=== PATIENT | female | born 1960 | race Hispanic/Latino ===

== ENCOUNTER 2019-06-09 21:47 | Emergency (ER) | payer OTHER ==
[~2019-06-09 21:47] MED LIST: ATOR40TA69 PO; CIPR-279 PO; INSU3INS5 SQ; LOSA25TA41 PO; METF-446 PO; METR500T PO
[2019-06-09] MEDS ORDERED: ONDANSETRON HCL 4 MG/2 ML VIAL ONE (21:51)
[2019-06-09] MEDS ORDERED: SODIUM CHLORIDE 0.9% 250 ML IV ONE (21:52)
[2019-06-09 22:17] LABS: BASOPHILS % (AUTO) 0.3 % (0.0-5.0); EOSINOPHILS % (AUTO) 0.1 % (0.0-8.0); HEMATOCRIT 39.9 % (36-48); MEAN CORPUSCULAR HEMOGLOBIN 29.4 pg (27.0-33.0); MEAN CORPUSCULAR HGB CONC 32.6 g/dL (32.0-36.0); MEAN CORPUSCULAR VOLUME 90.3 fL (79-99); MONOCYTES % (AUTO) 4.2 % (3.0-13.0); NEUTROPHILS % (AUTO) 88.2 % (40.0-77.0); PLATELET COUNT (AUTO) 292 K/uL (130-400); RED BLOOD CELL COUNT(AUTO) 4.42 MIL/uL (4.00-5.50); RED CELL DISTRIBUTION WIDTH 12.9 % (11.0-15.5); WHITE BLOOD COUNT (AUTO) 9.7 K/uL (4.8-10.8)
[2019-06-09] MEDS ORDERED: DiphenhydrAMINE HCL 50 MG/ML VIAL ONE (22:23)
[2019-06-09] MEDS ORDERED: METOCLOPRAMIDE 10 MG/2 ML VIAL ONE (22:23)
[2019-06-09] MEDS ORDERED: FAMOTIDINE/PF 20 MG/2 ML VIAL IV ONE (22:24)
[2019-06-09] MEDS ORDERED: SODIUM CHLORIDE 0.9% 1000ML 1,000 ML IV ONE ×2 (22:24→23:55)
[2019-06-09 22:27] LABS: CREATININE 0.8 mg/dL (0.5-1.5); POTASSIUM 3.4 mmol/L (3.5-5.1)
[2019-06-09 22:31] LABS: ALBUMIN 3.6 g/dL (3.5-5.0); BILIRUBIN,TOTAL 0.3 mg/dL (0.2-1.0); TOTAL PROTEIN, SERUM 8.6 g/dL (6.0-8.3)
[2019-06-09 22:56] LABS: APPEARANCE,URINE Clear (CLEAR); BILIRUBIN,URINE Negative (NEGATIVE); COLOR,URINE Yellow (YELLOW); GLUCOSE, URINE (UA) >=1000 mg/dL (NEGATIVE); KETONES,URINE Negative (NEGATIVE); LEUKOCYTE ESTERASE ,URINE Negative (NEGATIVE); NITRATE,URINE Negative (NEGATIVE); OCCULT BLOOD,URINE Negative (NEGATIVE); PROTEIN,URINE POS 2+ mg/dL (NEGATIVE)
[2019-06-09 23:09] LABS: AMORPHOUS SEDIMENT,UR Few /LPF (None Seen); BACTERIA,URINE None Seen /HPF (None Seen); RBC,URINE None Seen /HPF (0-1); SQUAMOUS EPITHELIAL CELL,UR Rare /HPF (0-2); WBC,URINE None Seen /HPF (0-1); YEAST,URINE BUDDING None Seen /HPF (None Seen)
[2019-06-09 23:35] LABS: OCCULT BLOOD STOOL SINGLE ONLY NEGATIVE (NEGATIVE)
== END 2019-06-10 01:13 | disposition home or self-care (01) ==
LOC: EDH 21:47
DX: K29.70 Gastritis, unspecified, without bleeding (principal); E86.9 Volume depletion, unspecified; R19.7 Diarrhea, unspecified; I10 Essential (primary) hypertension; E11.9 Type 2 diabetes mellitus without complications; E78.5 Hyperlipidemia, unspecified
CPT/HCPCS: 36415; 80053; 81001; 82270; 83630; 83690; 84484; 85025; 87046; 87177; 87324; 93005; 96361; 96374; 96375; 99285; J1200; J2405; J2765; J3490; J7030 ×3

== ENCOUNTER 2021-06-24 21:40 | Emergency (ER) | payer SELFPAY ==
[~2021-06-24] VITALS: Ht 152.4 cm; Wt 72.6 kg
[2021-06-24 22:13] LABS: BASOPHILS % (AUTO) 0.6 % (0.0-5.0); EOSINOPHILS % (AUTO) 2.5 % (0.0-8.0); HEMATOCRIT 38.2 % (36-48); LYMPHOCYTES % (AUTO) 42.1 % (21.0-51.0); MEAN CORPUSCULAR HEMOGLOBIN 29.6 pg (27.0-33.0); MEAN CORPUSCULAR HGB CONC 32.7 g/dL (32.0-36.0); MEAN CORPUSCULAR VOLUME 90.3 fL (79-99); MONOCYTES % (AUTO) 8.9 % (3.0-13.0); NEUTROPHILS % (AUTO) 45.6 % (40.0-77.0); PLATELET COUNT (AUTO) 279 K/uL (130-400); RED BLOOD CELL COUNT(AUTO) 4.23 MIL/uL (4.00-5.50); RED CELL DISTRIBUTION WIDTH 12.5 % (11.0-15.5); WHITE BLOOD COUNT (AUTO) 7.1 K/uL (4.8-10.8)
[2021-06-24 22:25] LABS: INR 1.02 (0.85-1.15); PROTHROMBIN TIME 11.1 SEC (9.6-11.6)
[2021-06-24 22:26] LABS: PARTIAL THROMBOPLASTIN TIME 25.3 SEC (26.3-35.5)
[2021-06-24 22:30] LABS: ALBUMIN 3.5 g/dL (3.5-5.0); BILIRUBIN,TOTAL 0.3 mg/dL (0.2-1.0); POTASSIUM 3.4 mmol/L (3.5-5.1); TOTAL PROTEIN, SERUM 8.3 g/dL (6.0-8.3)
[2021-06-24 23:46] LABS: APPEARANCE,URINE Clear (CLEAR); BILIRUBIN,URINE Negative (NEGATIVE); COLOR,URINE Yellow (YELLOW); GLUCOSE, URINE (UA) >=1000 mg/dL (NEGATIVE); KETONES,URINE Negative (NEGATIVE); LEUKOCYTE ESTERASE ,URINE Small (NEGATIVE); NITRATE,URINE Negative (NEGATIVE); OCCULT BLOOD,URINE Negative (NEGATIVE); PH,URINE 5.5 (5.0-8.0); PROTEIN,URINE Negative (NEGATIVE); UROBILINOGEN,URINE 0.2 mg/dL (0.2-1.0)
[2021-06-24 23:58] LABS: BACTERIA,URINE Rare /HPF (None Seen); RBC,URINE 0-1 /HPF (0-1); SQUAMOUS EPITHELIAL CELL,UR Few /HPF (0-2)
[2021-06-24 23:59] LABS: YEAST,URINE BUDDING Rare /HPF (None Seen)
[2021-06-25] MEDS ORDERED: 0.9%NACL 1000ML 1,000 ML IV ONE ×2 (01:00)
[2021-06-25] MEDS ORDERED: KETOROLAC 30MG VIAL (30MG/ML) IV ONE (01:00)
[2021-06-25] MEDS ORDERED: CEFTRIAXONE 1G VIAL IVP ONE (01:00)
[2021-06-25] MEDS ORDERED: KETOROLAC 15MG/ML VIAL (15MG/ML) ONE (02:54)
[2021-06-25] MEDS ORDERED: CEFTRIAXONE 1G VIAL ONE (02:54)
[2021-06-25] MEDS ORDERED: KETOROLAC 30MG VIAL (30MG/ML) ONE (02:57)
[2021-06-25] MEDS ORDERED: CEPH500T PO (03:14)
[2021-06-25] MEDS ORDERED: MELO7.5T12 PO (03:15)
[2021-06-25] MEDS ORDERED: DICY20TA2 PO (03:15)
[2021-06-25] MEDS ORDERED: CYCL-309 PO (03:15)
[2021-06-25 03:20] VITALS: BP 123/60
== END 2021-06-25 03:24 | disposition home or self-care (01) ==
LOC: EDH 21:40
DX: N39.0 Urinary tract infection, site not specified (principal); E86.9 Volume depletion, unspecified; R53.81 Other malaise; R53.83 Other fatigue; Z20.822 Contact with and (suspected) exposure to COVID-19; E11.65 Type 2 diabetes mellitus with hyperglycemia; I10 Essential (primary) hypertension; Z79.1 Long term (current) use of non-steroidal anti-inflammatories (NSAID); Z79.4 Long term (current) use of insulin; Z79.899 Other long term (current) drug therapy
CPT/HCPCS: 36415 ×2; 71045; 80053; 81001; 82948; 83605; 84484; 85025; 85610; 85730; 87040 ×2; 87088; 87635; 87804 ×2; 93005; 96361; 96374; 96375; 99285; C9803; J0696; J1885; J7030

== ENCOUNTER 2022-01-27 23:29 | Emergency (ER) | payer OTHER ==
[~2022-01-27] VITALS: Ht 154.9 cm; Wt 68.5 kg
[~2022-01-27 23:29] MED LIST changes: +CEPH500T PO; +CYCL-309 PO; +DICY20TA2 PO; +MELO7.5T12 PO
[2022-01-28 00:09] LABS: BASOPHILS % (AUTO) 0.6 % (0.0-5.0); EOSINOPHILS % (AUTO) 1.2 % (0.0-8.0); LYMPHOCYTES % (AUTO) 50.6 % (21.0-51.0); MEAN CORPUSCULAR HEMOGLOBIN 30.4 pg (27.0-33.0); MEAN CORPUSCULAR HGB CONC 33.8 g/dL (32.0-36.0); MEAN CORPUSCULAR VOLUME 89.9 fL (79-99); MONOCYTES % (AUTO) 8.5 % (3.0-13.0); PLATELET COUNT (AUTO) 260 K/uL (130-400); RED BLOOD CELL COUNT(AUTO) 3.78 MIL/uL (4.00-5.50); RED CELL DISTRIBUTION WIDTH 12.4 % (11.0-15.5); WHITE BLOOD COUNT (AUTO) 7.8 K/uL (4.8-10.8)
[2022-01-28 00:15] LABS: APPEARANCE,URINE CLEAR (CLEAR); BILIRUBIN,URINE NEGATIVE (NEGATIVE); COLOR,URINE LIGHT-YELLOW (YELLOW); GLUCOSE, URINE (UA) >=1000 mg/dL (NEGATIVE); KETONES,URINE NEGATIVE (NEGATIVE); LEUKOCYTE ESTERASE ,URINE NEGATIVE Leu/uL (NEGATIVE); NITRATE,URINE NEGATIVE (NEGATIVE); OCCULT BLOOD,URINE NEGATIVE (NEGATIVE); PH,URINE 5.5 (5.0-8.0); PROTEIN,URINE NEGATIVE (NEGATIVE); UROBILINOGEN,URINE 0.2 mg/dL (0.2-1.0)
[2022-01-28 00:18] LABS: SQUAMOUS EPITHELIAL CELL,UR RARE /HPF (0-2); WBC,URINE 0-1 /HPF (0-1)
[2022-01-28 00:27] LABS: CREATININE 0.9 mg/dL (0.5-1.5); POTASSIUM 4.3 mmol/L (3.5-5.1)
[2022-01-28 00:37] LABS: ALBUMIN 3.2 g/dL (3.5-5.0); TOTAL PROTEIN, SERUM 7.6 g/dL (6.0-8.3)
[2022-01-28] MEDS ORDERED: 0.9%NACL 1000ML 1,000 ML IV ONE ×2 (00:42→01:00)
[2022-01-28 04:49] VITALS: BP 142/62
[2022-01-28] MEDS ORDERED: MAG/ALUM/SIMETH 30 ML UDCUP ONE (04:49)
[2022-01-28] MEDS ORDERED: MAG/ALUM/SIMETH 30 ML UDCUP PO ONE (05:00)
[2022-01-28] MEDS ORDERED: TERC45CR VG (05:13)
== END 2022-01-28 05:38 | disposition home or self-care (01) ==
LOC: EDH 23:29
DX: N76.0 Acute vaginitis (principal); E11.65 Type 2 diabetes mellitus with hyperglycemia; R10.10 Upper abdominal pain, unspecified; I10 Essential (primary) hypertension; Z98.890 Other specified postprocedural states; Z79.899 Other long term (current) drug therapy; Z79.84 Long term (current) use of oral hypoglycemic drugs; Z79.4 Long term (current) use of insulin
CPT/HCPCS: 99285; 80053; 83690; 85025; 81001; 36415; 74176; 96360; 96361; 93005; J7030

== ENCOUNTER 2023-01-23 00:14 | Emergency (ER) | payer OTHER ==
[~2023-01-23] VITALS: Ht 154.9 cm; Wt 81.6 kg
[~2023-01-23 00:14] MED LIST changes: +TERC45CR VG
[2023-01-23 01:23] LABS: BASOPHILS # (AUTO) 0.04 K/uL (0.00-0.20); BASOPHILS % (AUTO) 0.5 % (0.0-5.0); EOSINOPHILS % (AUTO) 2.4 % (0.0-8.0); HEMATOCRIT 36.2 % (36-48); IMMATURE GRANULOCYTE ABSOLUTE 0.02 K/uL (0-1); LYMPHOCYTES % (AUTO) 48.3 % (21.0-51.0); MEAN CORPUSCULAR HEMOGLOBIN 30.2 pg (27.0-33.0); MEAN CORPUSCULAR HGB CONC 32.9 g/dL (32.0-36.0); MEAN CORPUSCULAR VOLUME 91.9 fL (79-99); MONOCYTES # (AUTO) 0.9 K/uL (0.1-1.0); MONOCYTES % (AUTO) 10.8 % (3.0-13.0); NEUTROPHILS # (AUTO) 3.2 K/uL (1.8-7.7); NEUTROPHILS % (AUTO) 37.8 % (40.0-77.0); PLATELET COUNT (AUTO) 243 K/uL (130-400); RED BLOOD CELL COUNT(AUTO) 3.94 MIL/uL (4.00-5.50); RED CELL DISTRIBUTION WIDTH 12.7 % (11.0-15.5); WHITE BLOOD COUNT (AUTO) 8.4 K/uL (4.8-10.8)
[2023-01-23 01:33] LABS: CREATININE 0.9 mg/dL (0.5-1.5); POTASSIUM 3.9 mmol/L (3.5-5.1)
[2023-01-23 01:37] LABS: ALBUMIN 3.1 g/dL (3.5-5.0); BILIRUBIN,TOTAL 0.2 mg/dL (0.2-1.0)
[2023-01-23] MEDS ORDERED: FAMOTIDINE 20MG VIAL IV ONE (02:00)
[2023-01-23] MEDS ORDERED: METOCLOPRAMIDE 10 MG/2 ML VIAL IVP ONE (02:00)
[2023-01-23] MEDS ORDERED: MORPHINE 4 MG SYG IVP ONE (02:00)
[2023-01-23] MEDS ORDERED: 0.9%NACL 1000ML 1,000 ML IV ONE (02:00)
[2023-01-23] MEDS ORDERED: IOHEXOL 350 MG/ML 100ML INFUS..BTL IV ONE (02:35)
[2023-01-23 03:49] LABS: ADD UA MICROSCOPIC YES; APPEARANCE,URINE CLEAR (CLEAR); BILIRUBIN,URINE NEGATIVE (NEGATIVE); COLOR,URINE COLORLESS (YELLOW); GLUCOSE, URINE (UA) >=1000 mg/dL (NEGATIVE); KETONES,URINE NEGATIVE (NEGATIVE); LEUKOCYTE ESTERASE ,URINE 75 Leu/uL (NEGATIVE); NITRATE,URINE NEGATIVE (NEGATIVE); OCCULT BLOOD,URINE NEGATIVE (NEGATIVE); PROTEIN,URINE NEGATIVE (NEGATIVE); UROBILINOGEN,URINE 0.2 mg/dL (0.2-1.0)
[2023-01-23 03:51] LABS: BACTERIA,URINE RARE /HPF (None Seen); SQUAMOUS EPITHELIAL CELL,UR RARE /HPF (0-2)
[2023-01-23] MEDS ORDERED: INSULIN HUMULIN R 100 UNIT/ML 3ML SQ ONE (04:30)
[2023-01-23] MEDS ORDERED: CEFTRIAXONE 2GM VIAL IVPB ONE (04:30)
[2023-01-23 05:02] VITALS: BP 115/88; PULSE 74; RESP 16; O2SAT 97
[2023-01-23] MEDS ORDERED: CEPH500B PO (05:27)
== END 2023-01-23 05:55 | disposition home or self-care (01) ==
LOC: EDH 00:14
DX: N39.0 Urinary tract infection, site not specified (principal); K80.50 Calculus of bile duct without cholangitis or cholecystitis without obstruction; I10 Essential (primary) hypertension; E11.9 Type 2 diabetes mellitus without complications; E78.00 Pure hypercholesterolemia, unspecified; Z79.84 Long term (current) use of oral hypoglycemic drugs; Z79.899 Other long term (current) drug therapy; Z90.710 Acquired absence of both cervix and uterus; Z98.890 Other specified postprocedural states
CPT/HCPCS: 99285; 74178; 96374; 96375; 71045; 84484; 80053; 83690; 85025; 87088; 82948 ×2; 81001; 36415; 96372; J1815; J3490; J7030; J0696; J2270; J2765; Q9967